=== PATIENT | female | born 1975 | race Caucasian/White ===

== ENCOUNTER 2016-07-04 12:36 | Emergency (ER) | payer OTHER ==
[~2016-07-04] VITALS: Ht 160 cm; Wt 72.6 kg
--- NOTE | 2016-07-04 12:36 | NUR ---
Patient PÉREZPeña PK, triaged by RN. Waiting for an available bed.
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
[2016-07-04 13:07] VITALS: BP 148/80
[2016-07-04] MEDS ORDERED: NACL 0.9% 1,000 ML IV ONE (13:30)
[2016-07-04] MEDS ORDERED: ONDANSETRON 4 MG/2 ML VIAL IVP ONE (13:30)
[2016-07-04] MEDS ORDERED: MORPHINE SULFATE 4 MG/ML SYR IVP ONE (13:30)
--- NOTE | 2016-07-04 13:41 | NUR ---
AAO PT REFUSE IV, BLOOD DRAW, DR WINTERS NOTIFIED, AWAITING ORDERS
[2016-07-04] MEDS ORDERED: HYDROcodone/APAP 5/325 MG 1 TAB TAB PO ONE (14:25)
--- NOTE | 2016-07-04 14:45 | NUR ---
UNABLE TO PROVIDE URINE AT THIS TIME
[2016-07-04 14:54] VITALS: BP 138/86
--- NOTE | 2016-07-04 14:54 | NUR ---
Patient discharged with v/s stable. Written and verbal after care instructions given and explained. Patient alert, oriented and verbalized understanding of instructions. Wheel Chair Assisted with to car. All questions addressed prior to discharge. ID band removed. Patient advised to follow up with PMD. Rx of ROBAXIN, MOTRIN given. Patient educated on indication of medication including possible reaction and side effects. Opportunity to ask questions provided and answered.
== END 2016-07-04 14:54 | disposition home or self-care (01) ==
LOC: MED 12:36
DX: S80.02XA Contusion of left knee, initial encounter (principal); S16.1XXA Strain of muscle, fascia and tendon at neck level, initial encounter; S39.91XA Unspecified injury of abdomen, initial encounter; S29.9XXA Unspecified injury of thorax, initial encounter; S21.109A Unspecified open wound of unspecified front wall of thorax without penetration into thoracic cavity, initial encounter; V43.52XA Car driver injured in collision with other type car in traffic accident, initial encounter; Y93.89 Activity, other specified; Y92.89 Other specified places as the place of occurrence of the external cause; Y99.8 Other external cause status
CPT/HCPCS: 71010; 73562; 99284; Q0092